=== PATIENT | female | born 1995 | race Caucasian/White ===

== ENCOUNTER 2016-11-22 07:59 | Day surgery (SDC) | payer BC ==
[~2016-11-22] VITALS: Ht 167.6 cm; Wt 118.0 kg
[~2016-11-22 07:59] MED LIST: IBUP800T PO; LIDOCAINE/PF 1%-EPI 1:200K, 30ML ONE; OXYC-302 PO; ROPIvacaine/PF 0.5%, 30 ML ONE
[2016-11-22] MEDS ORDERED: LACTATED RINGERS 1,000 ML IV SCH (08:14)
[2016-11-22 08:29] VITALS: BP 109/62
[2016-11-22 09:09] LABS: HCG UR OBC PASS
[2016-11-22] MEDS ORDERED: MIDAZOLAM 1 MG/ML, 2ML ONE (09:38)
[2016-11-22] MEDS ORDERED: FENTANYL PF 250 MCG/5ML ONE (09:38)
[2016-11-22] MEDS ORDERED: PROMETHAZINE 25 MG/ML, 1ML IV PRN (10:00)
[2016-11-22] MEDS ORDERED: ACETAMINOPHEN 325 MG TABLET PO PRN (10:00)
[2016-11-22] MEDS ORDERED: ONDANSETRON 2MG/ML, 2ML IVPush PRN (10:00)
[2016-11-22] MEDS ORDERED: MEPERIDINE/PF 25MG/0.5ML IVPush PRN (10:00)
[2016-11-22] MEDS ORDERED: METOCLOPRAMIDE 5 MG/ML, 2ML IV PRN (10:00)
[2016-11-22] MEDS ORDERED: OXYcodone 5 MG/5 ML ORAL.SOL UDC PO PRN (10:00)
[2016-11-22] MEDS ORDERED: FENTANYL PF 100 MCG/2ML IV PRN (10:00)
[2016-11-22] MEDS ORDERED: CEFAZOLIN 1,000 MG ONE (10:24)
[2016-11-22] MEDS ORDERED: ONDANSETRON 2MG/ML, 2ML ONE ×2 (10:24→14:31)
[2016-11-22] MEDS ORDERED: DEXAMETHASONE 4 MG/ML, 5ML ONE (10:24)
[2016-11-22] MEDS ORDERED: PROPOFOL 10 MG/ML, 20ML ONE (10:24)
[2016-11-22] MEDS ORDERED: BUPIVACAINE/PF-EPI 0.5% 1:200K INFIL ONE (11:08)
[2016-11-22] MEDS ORDERED: HYDROmorphone 2 MG/ML, 1ML ONE (12:08)
[2016-11-22] MEDS ORDERED: OXYcodone 5 MG/5 ML ORAL.SOL UDC ONE (12:09)
[2016-11-22] MEDS ORDERED: ACETAMINOPHEN 325 MG TABLET ONE (12:09)
[2016-11-22] MEDS: HYDROmorphone 1 MG/ML, 1ML IV PRN ×5 (12:13→12:53)
[2016-11-22] MEDS ORDERED: BUPIVACAINE/PF-EPI 0.5% 1:200K ONE (12:20)
[2016-11-22] MEDS ORDERED: GENTAMICIN 80 MG/2 ML ONE (12:21)
[2016-11-22] MEDS ORDERED: AMPICILLIN 2 GM ONE (12:21)
[2016-11-22] MEDS ORDERED: KETOROLAC 30 MG/1 ML IVPush ONE (14:30)
[2016-11-22] MEDS ORDERED: ONDANSETRON 2MG/ML, 2ML IVPush ONE (14:30)
[2016-11-22] MEDS ORDERED: KETOROLAC 30 MG/1 ML ONE (14:31)
== END 2016-11-22 15:55 | disposition home or self-care (01) ==
LOC: OUT 07:59
PROVIDERS: ATTEND Orthopaedic Surgery
DX: M93.261 Osteochondritis dissecans, right knee (principal); M19.90 Unspecified osteoarthritis, unspecified site; E66.01 Morbid (severe) obesity due to excess calories; Z68.41 Body mass index [BMI] 40.0-44.9, adult; Z88.3 Allergy status to other anti-infective agents; G40.909 Epilepsy, unspecified, not intractable, without status epilepticus
CPT/HCPCS: 29887; 81025; C1713; C1769; J0290; J0690; J1100; J1170; J1580; J1885; J2250; J2405; J2704; J2795; J3010; J7120; J3490